=== PATIENT | male | born 1930 | race Caucasian/White ===

== ENCOUNTER 2018-05-03 17:36 | Emergency (ER) | payer MEDICARE, BC ==
[~2018-05-03] VITALS: Ht 180.3 cm; Wt 77.1 kg
[2018-05-03 17:54] VITALS: BP 139/84
[2018-05-03] MEDS ORDERED: SILVER NITRATE APPLICATOR 1 EA BOX ONE (18:44)
--- NOTE | 2018-05-03 18:48 | NUR ---
SEEN AND EXAMINED BY DR. BROWN
--- NOTE | 2018-05-03 18:55 | NUR ---
LABS DRAWNED BY ER PHLEB. AWAITING RESULTS.
--- NOTE | 2018-05-03 19:15 | NUR ---
MD BEDSIDE WITH PT
[2018-05-03] MEDS ORDERED: BACI/NEOM/POLY B OINT PKT 1 UDPKT PACKET ONE (19:20)
[2018-05-03 19:21] LABS: BASOPHILS % (AUTO) 0.5 % (0.0-2.0); EOSINOPHILS % (AUTO) 3.2 % (0.0-6.0); HEMATOCRIT 38 % (39-51); HEMOGLOBIN 13.1 g/dL (13.5-17.5); LYMPHOCYTES # (AUTO) 1.2 /CMM (0.8-4.8); LYMPHOCYTES % (AUTO) 18.6 % (20.0-44.0); MEAN CORPUSCULAR HGB CONC 34 g/dl (31.0-36.0); MEAN CORPUSCULAR VOLUME 99 fL (80-96); MONOCYTES # (AUTO) 0.6 /CMM (0.1-1.30); MONOCYTES % (AUTO) 8.8 % (2.0-12.0); NEUTROPHILS # (AUTO) 4.6 /CMM (1.8-8.9); NEUTROPHILS % (AUTO) 68.9 % (43.0-81.0); PLATELET COUNT (AUTO) 173 /CMM (150-450); RED BLOOD CELL COUNT(AUTO) 3.86 MIL/uL (4.5-6.0); WHITE BLOOD COUNT (AUTO) 6.6 K/uL (4.3-11.0)
[2018-05-03] MEDS ORDERED: OXYMETAZOLINE HCL NASAL SPRAY 30 ML BOTTLE NS ONE (19:23)
[2018-05-03] MEDS ORDERED: GELATIN SPONGE,ABSORBABLE 1 SPONGE SPONGE TP ONE (19:32)
--- NOTE | 2018-05-03 19:38 | NUR ---
GAVE REPORT TO BRANDT SHAH FOR KAMILLE.
--- NOTE | 2018-05-03 19:39 | NUR ---
RECEIVED REPORT FROM BRANDT KAYE FOR KAMILLE. PT RESTING IN BED WITH NO S/S OF ACUTE DISTRESS NOTED
[2018-05-03] MEDS ORDERED: AMOX/CLAVULANATE 875 MG TABLET PO ONE (20:30)
[2018-05-03] MEDS ORDERED: AMOX/CLAVULANATE 875 MG TABLET ONE (20:38)
--- NOTE | 2018-05-03 21:27 | NUR ---
Patient discharged to home in stable condition. Written and verbal after care instructions given. Patient verbalizes understanding of instruction. PT AMBULATED WITH STEADY GAIT NOTED. WALKING ALONGSIDE PT
--- NOTE | 2018-05-04 10:47 | NUR ---
VERBAL ORDER FOR SILVER NITRATE STICK,AFRIN SPRAY,BACITRACIN OINTMENT AND GEL FOAM REQUESTED AND GIVEN/ADMINISTERED BY DR BROWN PUT IN.
[2018-05-04] MEDS ORDERED: BACITRACIN ZINC OINT PACKET 1 EA PACKET TP ONE (11:00)
[2018-05-04] MEDS ORDERED: GELATIN SPONGE,ABSORBABLE 1 SPONGE SPONGE TP ONE (11:00)
[2018-05-04] MEDS ORDERED: SILVER NITRATE APPLICATOR 1 EA BOX TP ONE (11:00)
[2018-05-04] MEDS ORDERED: OXYMETAZOLINE HCL NASAL SPRAY 30 ML BOTTLE NS ONE (11:00)
== END 2018-05-03 21:29 | disposition home or self-care (01) ==
LOC: ER 17:36
DX: R04.0 Epistaxis (principal); I10 Essential (primary) hypertension; Z95.0 Presence of cardiac pacemaker; Z90.89 Acquired absence of other organs
CPT/HCPCS: 30901; 36415; 85025; 85730; 86803; 87806; 99284; A4606